=== PATIENT | female | born 1940 | race Caucasian/White ===

== ENCOUNTER 2017-05-22 06:56 | Emergency (ER) | payer MEDICARE, OTHER ==
[~2017-05-22] VITALS: Ht 167.6 cm; Wt 90.0 kg
[~2017-05-22 06:56] MED LIST: ASPI-183 PO; CELE200C PO; LEVO100T5 PO; LISI40TA PO; TRAM50TA PO
[2017-05-22 07:01] VITALS: BP 144/89; PULSE 95; RESP 16; TEMP 98; O2SAT 99
--- NOTE | 2017-05-22 07:11 | PD ---
HPI Chief Complaint: Skin Problem Time Seen by Provider: 07:11 Travel History International Travel<30 days: No Contact w/Intl Traveler<30days: No Traveled to known affect area: No History of Present Illness HPI 76-year-old female came to the emergency room with history of large bruise on her left thigh. Patient says that she fell when she had gone to [place] ago. At that time the fall was severe where she had a large lip laceration. She had to be taken to the emergency room with the lip was sutured. She was put on antibiotic Keflex. Patient takes one baby aspirin every day. She has returned home since then and last night it seemed more swollen than usual and was aching some more. Patient got on the Internet last night and did some web search and found out information about DVT. She was concerned for the blood clot and the consequences of DVT and hence she is here. No history of shortness of breath or chest pain. Vital signs otherwise stable. PFSH Past Medical History Narrative Medical List of her past medical, surgical, social and family history is reviewed from the nursing note. 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) Autoimmune Disease: No Heart Rhythm Problems: No Cancer: No Cardiovascular Problems: No High Cholesterol: No Chest Pain: No Congestive Heart Failure: No Diabetes: No Diminished Hearing: No Endocrine: Yes Gastrointestinal Disorders: Yes GERD: Yes Gout: Yes Genitourinary: No Hepatitis: No Hiatal Hernia: No Hypertension: Yes Immune Disorder: No Musculoskeletal: Yes (arthritis) Neurologic: No Psychiatric: No Reproductive: No Respiratory: No Immunizations Current: Yes Thyroid Disease: Yes (HYPOTHYROID) Tetanus Vaccination: < 5 Years Influenza Vaccination: Yes ?: Not Past Surgical History Section: Yes (1964) Gynecologic Surgery: Yes (C SECTION) Joint Replacement: Yes (left knee replaced) Pacemaker: No Other Surgery: Yes Social History Alcohol Use: No Tobacco Use: No Substance Use: No Allergies-Medications (Allergen,Severity, Reaction): Coded Allergies: No Known Allergies (Verified Adverse Reaction, Unknown, 05/22/17) Comments No known drug allergies. Reported Meds & Prescriptions Reported Meds & Active Scripts Active Reported Aspirin Low Dose (Aspirin) 81 Mg Chew 81 Mg CHEW DAILY Losartan (Losartan Potassium) 50 Mg Tab 50 Mg PO DAILY Levothyroxine (Levothyroxine Sodium) 100 Mcg Tab 100 Mcg PO DAILY Narrative Medication List of her home medications reviewed from the nursing note. Review of Systems Except as stated in HPI: all other systems reviewed are Neg Physical Exam Narrative GENERAL: Awake, alert, no obvious distress SKIN: Focused skin assessment warm/dry. Multiple large ecchymosis on the face, left proximal thigh on the medial and the lateral aspect. The lateral aspect is large with a possible hematoma underneath. No redness or signs of infection. HEAD: Atraumatic. Normocephalic. EYES: Pupils equal and round. No scleral icterus. No injection or drainage. ENT: No nasal bleeding or discharge. Mucous membranes pink and moist. NECK: Trachea midline. No JVD. CARDIOVASCULAR: Regular rate and rhythm. No murmur appreciated. RESPIRATORY: No accessory muscle use. Clear to auscultation. Breath sounds equal bilaterally. GASTROINTESTINAL: Abdomen soft, non-tender, nondistended. Hepatic and splenic margins not palpable. MUSCULOSKELETAL: No obvious deformities. No clubbing. No cyanosis. No edema. Good range of motion at the left hip joint and knee joint. NEUROLOGICAL: Awake and alert. No obvious cranial nerve deficits. Motor grossly within normal limits. Normal speech. PSYCHIATRIC: Appropriate mood and affect; insight and judgment normal. Data Data Last Documented VS Orders Orders Ed Discharge Order (05/22/17 07:26) MDM Medical Decision Making Medical Screen Exam Complete: Yes Emergency Medical Condition: Yes Medical Record Reviewed: Yes Differential Diagnosis Contusion, ecchymosis Narrative Course 7:24 AM patient was reassured that her condition had nothing to do with DVT. The large hematoma needs to resolve on its own. However it could be helped with putting some ice pack on the area. I also asked her to stop taking her baby aspirin for the next 2-3 days. Patient will be discharged home. She is comfortable going home. Procedures EKG Prior to Arrival: No Diagnosis Primary Impression: Hematoma Referrals: Primary Care Physician Additional Instructions: Please apply icepack on the thighs hematoma on your thigh 2 minutes on and 10 minutes off at a time as frequently as possible. Hold off taking a baby aspirin for the next 2-3 days. Follow up with her primary care. Return to the ER if condition worsens or any other new concerns. Med/Other Pt SpecificInfo: Med Stopped (hold the baby aspirin for next 2-3 days.) Disposition: 01 DISCHARGE HOME Condition: Stable Josefa,Shravanti R. MD May 22, 2017 07:11
[2017-05-22] MEDS ORDERED: ASPI81CH6 CHEW (07:12)
[2017-05-22] MEDS ORDERED: LOSA50TA PO (07:12)
== END 2017-05-22 07:43 | disposition home or self-care (01) ==
LOC: PHED 06:56
DX: S70.12XA Contusion of left thigh, initial encounter (principal); M19.90 Unspecified osteoarthritis, unspecified site; W19.XXXA Unspecified fall, initial encounter
CPT/HCPCS: 99281